=== PATIENT | male | born 1950 | race Caucasian/White ===

== ENCOUNTER 2021-10-07 11:54 | Outpatient (CLI) | payer OTHER | END 2021-10-08 13:40 | disposition home or self-care (01) | LOC: WOUND MED 11:54 | PROVIDERS: ATTEND Specialist | DX: E10.622 Type 1 diabetes mellitus with other skin ulcer (principal); L97.822 Non-pressure chronic ulcer of other part of left lower leg with fat layer exposed; L97.812 Non-pressure chronic ulcer of other part of right lower leg with fat layer exposed; R60.0 Localized edema | CPT/HCPCS: 11042; 11045; G0463; A4554; A4930; A6216; A6219 ==

== ENCOUNTER 2021-10-14 09:39 | Outpatient (CLI) | payer OTHER | END 2021-10-24 13:01 | disposition home or self-care (01) | LOC: WOUND MED 09:39 | PROVIDERS: ATTEND Specialist | DX: E10.621 Type 1 diabetes mellitus with foot ulcer (principal); L97.822 Non-pressure chronic ulcer of other part of left lower leg with fat layer exposed; L97.812 Non-pressure chronic ulcer of other part of right lower leg with fat layer exposed; R60.0 Localized edema | CPT/HCPCS: 11042; A4554; A4930; A6216; A6220 ==

== ENCOUNTER 2021-10-21 08:05 | Outpatient (CLI) | payer OTHER | END 2021-10-30 11:01 | disposition home or self-care (01) | LOC: WOUND MED 08:05 | PROVIDERS: ATTEND Specialist | DX: E10.622 Type 1 diabetes mellitus with other skin ulcer (principal); L97.822 Non-pressure chronic ulcer of other part of left lower leg with fat layer exposed; L97.812 Non-pressure chronic ulcer of other part of right lower leg with fat layer exposed; R60.0 Localized edema | CPT/HCPCS: 11042; A4554; A4930; A6216; A6219 ==

== ENCOUNTER 2021-10-28 08:11 | Outpatient (CLI) | payer OTHER | END 2021-10-30 11:01 | disposition home or self-care (01) | LOC: WOUND MED 08:11 | PROVIDERS: ATTEND Specialist | DX: E10.621 Type 1 diabetes mellitus with foot ulcer (principal); L97.822 Non-pressure chronic ulcer of other part of left lower leg with fat layer exposed; L97.812 Non-pressure chronic ulcer of other part of right lower leg with fat layer exposed; R60.0 Localized edema | CPT/HCPCS: 11042; A4554; A4930; A6216; A6219 ==

== ENCOUNTER 2021-11-04 08:51 | Outpatient (CLI) | payer OTHER | END 2021-11-04 10:00 | disposition home or self-care (01) | LOC: WOUND MED 08:51 | PROVIDERS: ATTEND Specialist | DX: E10.621 Type 1 diabetes mellitus with foot ulcer (principal); L97.822 Non-pressure chronic ulcer of other part of left lower leg with fat layer exposed; L97.812 Non-pressure chronic ulcer of other part of right lower leg with fat layer exposed; R60.0 Localized edema | CPT/HCPCS: G0463; A4554; A4930; A6216 ==

== ENCOUNTER 2022-01-06 08:52 | Outpatient (CLI) | payer OTHER | END 2022-01-06 10:00 | disposition home or self-care (01) | LOC: WOUND MED 08:52 | PROVIDERS: ATTEND Specialist | DX: I25.810 Atherosclerosis of coronary artery bypass graft(s) without angina pectoris (principal); I11.0 Hypertensive heart disease with heart failure; L04.3 Acute lymphadenitis of lower limb; J44.9 Chronic obstructive pulmonary disease, unspecified ==

== ENCOUNTER 2022-08-18 11:41 | Outpatient (CLI) | payer OTHER | END 2022-08-18 12:02 | disposition home or self-care (01) | LOC: RAD 11:41 | PROVIDERS: ATTEND Internal Medicine | DX: M19.91 Primary osteoarthritis, unspecified site (principal) ==

== ENCOUNTER 2022-08-21 08:06 | Outpatient (CLI) | payer OTHER | END 2022-08-21 08:15 | disposition home or self-care (01) | LOC: SONOGRAMA 08:06 | PROVIDERS: ATTEND Internal Medicine | DX: M75.121 Complete rotator cuff tear or rupture of right shoulder, not specified as traumatic (principal) ==

== ENCOUNTER 2023-02-05 08:15 | Outpatient (CLI) | payer OTHER | END 2023-02-05 08:19 | disposition home or self-care (01) | LOC: SONOGRAMA 08:15 | PROVIDERS: ATTEND Physical Medicine & Rehabilitation | DX: S46.011A Strain of muscle(s) and tendon(s) of the rotator cuff of right shoulder, initial encounter (principal) ==

== ENCOUNTER 2024-11-29 12:04 | Outpatient (CLI) | payer OTHER | END 2024-11-29 12:10 | disposition home or self-care (01) | LOC: RAD 12:04 | PROVIDERS: ATTEND Family Medicine | DX: M40.03 Postural kyphosis, cervicothoracic region (principal) ==